=== PATIENT | female | born 1950 | race Caucasian/White ===

== ENCOUNTER 2018-05-09 11:48 | Observation (INO) | payer OTHER, MEDICARE ==
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
[2018-05-09] MEDS ORDERED: NS 1,000 ML IV ONE (13:16)
[2018-05-09] MEDS ORDERED: IOPAMIDOL (ISOVUE 370) 100 ML BTL IV ONE (13:50)
[2018-05-09] MEDS ORDERED: ONDANSETRON DISINTEGRATING 4 MG TAB PO PRN (16:44)
[2018-05-09] MEDS ORDERED: ASPIRIN 325 MG TAB PO ONE (16:44)
[2018-05-09] MEDS ORDERED: DIAZEPAM 5 MG TAB PO PRN (16:44)
[2018-05-09] MEDS ORDERED: ACETAMINOPHEN 325 MG TAB PO PRN (16:44)
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
[2018-05-09] MEDS ORDERED: ALBUTEROL 60 PUFFS/8 GM MDI IH PRN (20:51)
[2018-05-09] MEDS: IBUPROFEN 600 MG TAB PO SCH (21:19)
[2018-05-09] MEDS: BACITRACIN ZINC 14.2 GM OINTTUBE TP SCH (21:20)
[2018-05-09] MEDS: FLUTICASONE NASAL 120 SPRAYS/16 GM MDI EACHNARE SCH (21:36)
[2018-05-09] MEDS: BUDESONIDE 90 MCG MDI IH SCH (21:36)
[2018-05-10] MEDS: IBUPROFEN 600 MG TAB PO SCH (05:42)
[2018-05-10] MEDS: BUDESONIDE 90 MCG MDI IH SCH (08:08)
[2018-05-10] MEDS: FLUTICASONE NASAL 120 SPRAYS/16 GM MDI EACHNARE SCH (08:09)
[2018-05-10 08:35] VITALS: BP 165/82
[2018-05-10] MEDS ORDERED: CALCIUM CARB W/VIT D 500 MG TAB PO SCH (09:00)
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
[2018-05-10] MEDS ORDERED: HYDROCODONE/APAP 5/325 TAB PO PRN (09:25)
[2018-05-10] MEDS: BACITRACIN ZINC 14.2 GM OINTTUBE TP SCH (10:51)
== END 2018-05-10 11:11 | disposition home or self-care (01) ==
LOC: EDSEX 11:48 → F3N 17:36
PROVIDERS: ADMIT Surgery; ATTEND Surgery
DX: S15.001A Unspecified injury of right carotid artery, initial encounter (principal); S22.21XA Fracture of manubrium, initial encounter for closed fracture; S22.32XA Fracture of one rib, left side, initial encounter for closed fracture; S20.219A Contusion of unspecified front wall of thorax, initial encounter; M79.641 Pain in right hand; E27.9 Disorder of adrenal gland, unspecified; V43.62XA Car passenger injured in collision with other type car in traffic accident, initial encounter; Y92.410 Unspecified street and highway as the place of occurrence of the external cause; Y99.8 Other external cause status; Z88.0 Allergy status to penicillin
CPT/HCPCS: 70498; 71046; 71260; 73130; 92523; 97161; 97165; G0378; G8978; G8979; G8980; G8987; G8988; G9165; G9166; G9167; 82435-PO; 82565-PO; 82947-PO; 84132-PO; 84295-PO; 84520-PO; 85014-PO; Q9967